=== PATIENT | male | born 1995 | race African-American/Black ===

== ENCOUNTER 2018-01-03 00:20 | Emergency (ER) | payer BC, SELFPAY ==
[2018-01-03] VITALS (14 sets, daily range): BP systolic 118–141; BP diastolic 57–80; PULSE 54–98; RESP 14–22; TEMP 36.7; O2SAT 94–100; BMI 21.8
[2018-01-03 00:54] LABS: Absolute Lymphocyte Count 2.36 X10^3/ul (0.83-4.51); Absolute Neutrophil Count 3.1 X10^3/uL (2.0-7.7); Basophil# 0.02 X10^3/uL; Basophil% 0.3 % (0-1); Eosinophil# 0.09 X10^3/uL; Eosinophils% 1.5 % (0-5); Hemoglobin 16.3 g/dl (13.0-16.5); Lymphocyte # 2.36 X10^3/ul (4.0); Lymphocyte % 39.9 % (19-41); Mean Corp Hgb Conc 36.2 g/gl (32-36); Mean Corpuscular Hgb 31.6 pg (27.0-32.0); Mean Corpuscular Volume 87.2 fL (80-94); Mean Platelet Vol. 11.2 fl (6.2-12.0); Monocyte# 0.38 X10^3/uL; Monocyte% 6.4 % (0-10); Neutrophil # 3.06 X10^3/uL (2.7-7.7); Neutrophil % 51.7 % (47-70); Platelet Count 143 K/mm3 (150-450); RBC Distribution Width CV 11.5 % (11.6-14.6); RBC Distribution Width SD 36.5 fl (35.1-43.9); Red Blood Count 5.16 M/mm3 (4.6-6.2); White Blood Count 5.9 K/mm3 (4.4-11.0)
[2018-01-03 00:56] LABS: POSITIVE COUNT NO; POSITIVE DIFFERENTIAL NO; POSITIVE MORPHOLOGY NO
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
[2018-01-03] MEDS: Ziprasidone IM 20 MG/ML VIAL IM (01:39)
[2018-01-03 01:40] LABS: Anion Gap 10 (5-15); BUN 19 mg/dL (7-18); BUN/Creat Ratio 14.4 RATIO (10-20); Calcium,Total 8.5 mg/dL (8.5-10.1); Chloride 110 mmol/L (98-107); Creatinine, Serum 1.32 mg/dL (0.70-1.30); EST Glomerular Filtration Rate 73 mL/min (>60); Est Glom Filt Rate - Afr Amer 89 mL/min (>60); Estimated Creatinine Clearance 105.56 ml/min; Glucose 94 mg/dL (74-106); Potassium 3.7 mmol/L (3.5-5.1); Sodium Level 141 mmol/L (136-145)
--- NOTE | 2018-01-03 02:40 | ED.RN ---
DRESSING APPLIED TO RIGHT WRIST AND LEFT WRIST. BACTERIN OINTMENT APPLIED AND 4X4 GAUZE AND CLING WRAP. POSITIVE DISTAL PULSES NOTED. PATIENT BLOOD CLEANED UP AT THIS TIME. PATIENT WRIST RESTRAINTS ADJUSTED AT THIS TIME. PATIENT REMAINS CALM WITH MEDICATIONS
[2018-01-03 04:38] LABS: Amphetamine Urine VISTA NEGATIVE (<1000 ng/mL); Barbiturate Urine VISTA NEGATIVE (< 200 ng/mL); Benzodiazepine Urine VISTA POSITIVE (< 200 ng/mL); Cocaine Urine VISTA NEGATIVE (< 300 ng/mL); Ecstacy Urine VISTA NEGATIVE (< 500 ng/mL); Methadone Urine VISTA NEGATIVE (< 300 ng/mL); PCP Urine VISTA NEGATIVE (< 25 ng/mL); THC Urine VISTA NEGATIVE (< 50 ng/mL); Vista UDS pH Range 6
--- NOTE | 2018-01-03 05:10 | ED.RN ---
PATIENTS RESTRAITNS REMOVED AT THIS TIME
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
--- NOTE | 2018-01-03 08:12 | ED.RN ---
CHARLIE DEWEY HERE TO SERVE A NO TRESPASS ORDER. COPY PLACED WITH PT BELONGINGS
--- NOTE | 2018-01-03 09:40 | ED.RN ---
PT FATHER TOOK PT PHONE. PT SLEEPING. AROUSES EASILY. DID NOT EAT BUT STATES HE IS NOT HUNGRY. MOTHER/FATHER AT BEDSIDE
--- NOTE | 2018-01-03 11:51 | CASEMGMT ---
Social Work: Spoke with Gurpreet at Crisis. Gurpreet states that patient has been lethargic and not alert enough for mental health evaluation at this point. Gurpreet states that patient is beginning to wake up and will be evaluated soon. Spoke with patient's mother in the waiting room after obtaining patient's permission to speak to mother. Patient's mother with question as to why crisis has not evaluated patient at this time. 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 Patient's mother made aware that per Gurpreet, patient is beginning to wake up and will be evaluated soon. Patient's mother verbalizing understanding. CANDIS Robert
== END 2018-01-03 18:15 ==
PROVIDERS: Emergency Provider Emergency Medicine; Family Provider Family Medicine; PCP Family Medicine
DX: T14.91XA Suicide attempt, initial encounter (principal); X78.9XXA Intentional self-harm by unspecified sharp object, initial encounter; Y93.89 Activity, other specified; Y92.9 Unspecified place or not applicable; S61.512A Laceration without foreign body of left wrist, initial encounter; S61.511A Laceration without foreign body of right wrist, initial encounter; Q60.0 Renal agenesis, unilateral; Z72.0 Tobacco use
CPT/HCPCS: 12001; 36415; 80048; 80307; 80320; 85025; 96372; 99285; P9612; G0480; J3486

== ENCOUNTER → 2018-06-06 11:59 | Outpatient (CLI) | payer BC, SELFPAY | PROVIDERS: Family Provider Family Medicine; PCP Family Medicine; Visit Provider Family Medicine | DX: N39.0 Urinary tract infection, site not specified (principal); R11.0 Nausea; Z87.440 Personal history of urinary (tract) infections | CPT/HCPCS: 87086 ==

== ENCOUNTER → 2020-11-21 | Outpatient (CLI) | payer OTHER, SELFPAY ==
[2018-01-03 00:22] VITALS: BMI 21.8
== END | disposition home or self-care (01) ==
LOC: LABSPEC 15:54
PROVIDERS: PCP Family Medicine; Visit Provider Family Medicine
DX: N39.0 Urinary tract infection, site not specified (principal)
CPT/HCPCS: 87086; 87088

== ENCOUNTER → 2025-04-17 | Outpatient (CLI) | payer OTHER, SELFPAY ==
[2025-04-17 15:29] LABS: Hematocrit 46.7 % (40-54); Hemoglobin 16.7 g/dL (13.0-16.5); Immature Granulocytes Count 0.010 X10^3/uL (0.0-0.0); Mean Corp Hgb Conc 35.8 g/dL (32-36); Mean Corpuscular Volume 87.3 fL (80-94); Mean Platelet Vol. 11.6 fl (6.2-12.0); NRBC Flagged by Analyzer 0 % (0-5); Platelet Count 155 K/mm3 (150-450); RBC Distribution Width CV 11.5 % (11.6-14.6); RBC Distribution Width SD 36.2 fl (35.1-43.9); Red Blood Count 5.35 M/mm3 (4.6-6.2); White Blood Count 5.0 K/mm3 (4.4-11.0)
[2025-04-17 15:55] LABS: Creatinine, Urine (random) 118.00 mg/dL (39.00-259.00); Microalbumin,Random Urine < 12.0 mg/L (<20 mg/L)
[2025-04-17 16:10] LABS: AST(SGOT) 19 U/L (<=37); Alanine Aminotransfer ALT/SGPT 14 U/L (<=46); Albumin, Serum 4.4 g/dL (3.5-5.0); Alkaline Phosphatase 65 U/L (40-129); Anion Gap 13 (5-15); BUN 24 mg/dL (4-19); BUN/Creat Ratio 15.7 RATIO (10-20); Calcium,Total 9.4 mg/dL (7.6-11.0); Carbon Dioxide 21.6 mmol/L (21.0-32.0); Chloride 103 mmol/L (98-108); Cholesterol 183 mg/dL (<=200); Globulin 3.0 g/dL (2.2-4.2); Glucose 93 mg/dL (70-99); Low Density Lipoprotein Calc. 95 mg/dL; Potassium 3.9 mmol/L (3.3-5.1); Triglycerides 280 mg/dL; Very Low Density Lipoprotein 56 mg/dL (5-40); cholesterol:hdl ratio screen 5.63
[2025-04-17 16:49] LABS: Iron 75 ug/dL (65-175); Iron Binding Capacity,Total 283 ug/dL (250-450); Iron Binding Capacity,Unsat 208 ug/dL (228-428)
[2025-04-17 16:54] LABS: Ferritin 119 ng/mL (37-417); Vitamin B12 464 pg/mL (180-914); Vitamin D,25 Hydroxy 36.3 ng/mL (30-100)
== END | disposition home or self-care (01) ==
LOC: BFHLAB 11:13
PROVIDERS: PCP Family Medicine; Visit Provider Nurse Practitioner Family
DX: N18.2 Chronic kidney disease, stage 2 (mild) (principal); R53.83 Other fatigue
CPT/HCPCS: 36415; 80053; 80061; 82043; 82306; 82570; 82607; 82728; 83540; 83550; 84439; 84443; 85025